=== PATIENT | female | born 1985 | race Caucasian/White ===

== ENCOUNTER 2021-02-12 13:59 | Outpatient (CLI) | payer OTHER, SELFPAY ==
--- NOTE | 2021-02-12 14:16 | XR_ITS ---
WS: [id number] FOOT LEFT TECHNIQUE: 3 views of the left foot CLINICAL INFORMATION: LEFT TOE PAIN COMPARISON: None. FINDINGS: Nondisplaced longitudinal slightly comminuted fracture involving the fourth proximal phalanx. Associa lui soft tissue edema. Normal third proximal phalanx. Normal metatarsals. XR/XR foot LT min 3V* [id number] IMPRESSION: 1. Nondisplaced longitudinal slightly comminuted fracture involving the fourth proximal phalanx. 2. Normal third proximal phalanx 3. Normal metatarsals.
== END 2021-02-12 14:00 | disposition home or self-care (01) ==
PROVIDERS: Visit Provider Ophthalmology
DX: S92.912A Unspecified fracture of left toe(s), initial encounter for closed fracture (principal); X58.XXXA Exposure to other specified factors, initial encounter
CPT/HCPCS: 73630